=== PATIENT | male | born 1945 | race Caucasian/White ===

== ENCOUNTER → 2023-12-06 12:39 | Outpatient (REF) | payer MEDICARE, SELFPAY | LOC: HWRAD 12:39 | PROVIDERS: ATTENDING PHYSICIAN Internal Medicine | DX: Z00.00 Encounter for general adult medical examination without abnormal findings (principal); R04.2 Hemoptysis | CPT/HCPCS: 71260; Q9967 ==

== ENCOUNTER 2024-02-26 16:53 | Emergency (ER) | payer MEDICARE, SELFPAY ==
[2024-02-26 16:58] VITALS: BP 189/103
--- NOTE | 2024-02-26 23:39 | ED.SKININJ ---
HPI-Injury
General
Chief Complaint: Skin Surface Trauma
Source: patient
Exam Limitations: none
Time Seen by Provider: 02/26/24 17:09
Nursing documentation reviewed up to this point in time: agreed with
Travel History
Have you had any contact with someone who has COVID-19?: No
Do you have any symptoms of coronavirus? Fever > 100 degrees, chills, cough, shortness of breath, sore throat, loss of taste or smell, muscle aches, or headache?: No
History of Present Illness-Injury
Is this injury a work related problem?: No
Is pt an associate of [facility]?: No
Initial Injury comments:
Patient to ED with complaint of splinter to right palmar distal 5th finger. Splinter from telephone pole. He was unable to retrieve at home. Brought self to ED for eval. Injury occurred today.
Past History
Past History
ED Past Medical History: None
ED Past Surgical History: Tonsilectomy and Other
Social History
Tobacco: Non-smoker
Alcohol: None
Drug: None
Personal:
Living: with family
Review of Systems
Review of Systems
Allergies reviewed?: Yes
All Other Systems: ROS reviewed and negative except as documented in HPI and ROS
Constitutional: Reports no symptoms
Musculoskeletal: Reports no symptoms
Skin: Reports other (splinter right distal palmar 5th finger)
Neurological: Reports no symptoms
Psychiatric: Reports no symptoms
Skin Exam
Foreign Body
Right Distal Palmar Fifth Finger:
Foreign body is: deep
Foreign body can be visualized?: Yes
Phy Exam
General Physical Exam
General Presentation: well appearing and no apparent distress
General age: appears stated age
General Skin: warm and dry
General Habitus: normal
General Mental: alert
General Hydration: appears well hydrated
Musculoskeletal Exam
Musculoskeletal Exam: neuro vasc intact
Skin Exam
Skin Exam: normal color, warm/dry and no rash
Psychiatric Exam
Psychiatric Exam: normal mood/affect
Course
Vital Signs
Initial and Last Documented VS:
Initial Vital Signs
Temp Pulse Resp BP Pulse Ox
98.1 F 78 20 189/103 98
02/26/24 16:58 02/26/24 16:58 02/26/24 16:58 02/26/24 16:58 02/26/24 16:58
Last Documented Vital Signs
Temp Pulse Resp BP Pulse Ox
98.1 F 78 20 189/103 98
02/26/24 16:58 02/26/24 16:58 02/26/24 16:58 02/26/24 16:58 02/26/24 16:58
Procedures
Foreign Body Removal-Skin
Anesthesia: 1% lidocaine
Foreign body removed using: incision (Small superficial slice with #11 blade and FB retrieved. Dressed with antibiotic ointment and dressing.)
Foreign body removed: completely
*Critical Care Note
Total Time (30-74mins, 75-104mins- exclusive of procedures): Not Applicable
ED Attending Note
-
Portions of this chart may have been created with voice recognition software.� Occasional wrong word or��sound alike� substitutions may have occurred due to the inherent limitations of voice recognition software.
Discharge Plan
Departure
Patient Disposition: Home (Routine Discharge)
Date of Disposition: 02/26/24
Time of Disposition: 17:32
Patient with high blood pressure during this ER visit?: No
Condition: Good
Covid-19: Not Applicable
Discharge Problem:
Splinter
Instructions: Wound Care (DC), Foreign Body in Skin (DC)
Prescriptions:
No Action
cephalexin 500 mg capsule
500 mg PO BID 10 Days Qty: 19 0RF
Activity Restrictions/Additional Instructions:
Follow up with your family doctor.
Interventions
Interventions:
*Risk Screen - Suicide Last Done: 02/26/24 18:10
*General Assessment Last Done: 02/26/24 18:08
*Neglect/Abuse Screening Last Done: 02/26/24 18:08
ED- Fall Risk Assessment Last Done: 02/26/24 18:10
*ED COVID-19 Vaccine History Last Done: 02/26/24 18:08
*Nursing Disposition Last Done: 02/26/24 18:12
ED-Skin Assessment Last Done: 02/26/24 18:10
Discharge Date and Time
Discharge Date/Time: 02/26/24 18:13
Print Language: SLOVAK
== END 2024-02-26 18:13 | disposition home or self-care (01) ==
LOC: EMR 16:53
PROVIDERS: EMERGENCY PHYSICIAN Emergency Medicine; FAMILY PHYSICIAN Internal Medicine
DX: S60.456A Superficial foreign body of right little finger, initial encounter (principal); W45.8XXA Other foreign body or object entering through skin, initial encounter
CPT/HCPCS: 99284; 10120

== ENCOUNTER → 2024-05-07 11:08 | Outpatient (REF) | payer MEDICARE, SELFPAY ==
[2024-05-07 12:34] LABS: PSA, Total - Diagnostic 7.79 ng/ml (0.0-4.0)
== END ==
LOC: REG 11:08
PROVIDERS: ATTENDING PHYSICIAN Surgery
DX: R97.20 Elevated prostate specific antigen [PSA] (principal)
CPT/HCPCS: 36415; 84153

== ENCOUNTER → 2024-07-10 16:15 | Outpatient (REF) | payer MEDICARE, SELFPAY | LOC: RCS 16:15 | PROVIDERS: ATTENDING PHYSICIAN Family Medicine | DX: R01.1 Cardiac murmur, unspecified (principal) | CPT/HCPCS: 93306 ==

== ENCOUNTER → 2024-07-27 08:55 | Outpatient (REF) | payer MEDICARE, SELFPAY | LOC: PAVMRI 08:55 | PROVIDERS: ATTENDING PHYSICIAN Family Medicine | DX: I72.3 Aneurysm of iliac artery (principal) | CPT/HCPCS: 72198; A9585 ==

== ENCOUNTER → 2024-08-03 11:14 | Outpatient (REF) | payer MEDICARE, SELFPAY | LOC: CLAB 11:14 | PROVIDERS: ATTENDING PHYSICIAN Surgery | DX: R97.20 Elevated prostate specific antigen [PSA] (principal) | CPT/HCPCS: 88305 ==

== ENCOUNTER → 2024-10-30 10:53 | Outpatient (REF) | payer MEDICARE, SELFPAY | LOC: PAVMRI 10:53 | PROVIDERS: ATTENDING PHYSICIAN Radiology Radiation Oncology; FAMILY PHYSICIAN Family Medicine | DX: C61 Malignant neoplasm of prostate (principal) | CPT/HCPCS: 72195 ==

== ENCOUNTER 2025-02-08 16:05 | Emergency (ER) | payer MEDICARE, SELFPAY ==
[2025-02-08 16:14] VITALS: BP 160/90
--- NOTE | 2025-02-08 19:48 | ED.GENMED ---
History of Present Illness
General
Chief Complaint: Skin Problem
Source: patient
Exam Limitations: none
Time Seen by Provider: 02/08/25 19:36
History of Present Illness
History of Present Illness:
79yo right hand dominant male with a history of hyperlipidemia and prostate cancer (finished radiation last month, not receiving any current treatment) presenting with his for evaluation of left wrist pain. Patient was moving heavy boxes at
[employer] yesterday and felt a twinge in his left wrist. He did not have any pain initially but developed pain several hours later. He also has some redness to the lateral aspect of the wrist. Symptoms seem to be worsening today. Pain is worse with
movement. He is worried that he may have a fracture and his thinks he may have gotten a bug bite while he was outside. He denies any fevers, chills, or body aches.
Past History
Past History
ED Past Medical History: None
ED Past Surgical History: Tonsilectomy and Other
Social History
Tobacco: Non-smoker
Alcohol: None
Drug: None
Personal:
Living: with family
Phy Exam
General Physical Exam
General Presentation: well appearing and no apparent distress
General age: appears stated age
General Skin: warm and dry
General Habitus: normal
General Mental: alert
ENT Exam
ENT Exam: normocephalic
Neurological Exam
Neurological Exam: alert
Musculoskeletal Exam
Musculoskeletal Exam: other (L wrist: +Erythema and warmth present to the ulnar aspect of the wrist with tenderness in the area. No wounds. ROM is normal although he does have pain with flexion/extension. No joint effusion noted. 2+ radial pulse and
sensation intact. )
Skin Exam
Skin Exam: warm/dry
Psychiatric Exam
Psychiatric Exam: normal mood/affect
Course
Orders/Labs/Results
Orders:
Orders
02/08/25 16:18
CR Forearm - Left 2 View Urgent
Comment:
Reason For Exam: Pain, swelling
CR Hand - Left 2 Views Urgent
Comment:
Reason For Exam: Pain, swelling
CR Wrist - Left Min 2 Views Urgent
Comment:
Reason For Exam: Swelling, pain
02/08/25 20:45
[place] Wrist Left-Treatment ONCE
Cephalexin Monohydrate [Keflex] 500 mg PO NOW STA
Prednisone [Deltasone] 40 mg PO NOW STA
Vital Signs
Initial and Last Documented VS:
Initial Vital Signs
Temp Pulse Resp BP Pulse Ox
97.6 F 74 18 160/90 95
02/08/25 16:14 02/08/25 16:14 02/08/25 16:14 02/08/25 16:14 02/08/25 16:14
Last Documented Vital Signs
Temp Pulse Resp BP Pulse Ox
97.6 F 74 18 160/90 95
02/08/25 16:14 02/08/25 16:14 02/08/25 16:14 02/08/25 16:14 02/08/25 16:14
MDM/Problems Addressed
Differential Diagnosis Includes:
79yoM here with L wrist pain and redness x 1 day. Started several hours after lifting heavy boxes. No f/c or systemic symptoms. There is erythema/warmth noted to the ulnar aspect of the wrist. No joint effusion and ROM is normal, no clinical concern
for septic arthritis. Differential diagnosis includes: cellulitis, inflammatory arthritis, tendonitis, sprain, doubt fracture
X-rays of hand/wrist/forearm are negative for acute osseous abnormalities. No indication for further workup. Will cover with both prednisone and Keflex. [place] wrist brace provided. Advised close f/u with PCP and orthopedics. Strict ED return
precautions discussed including spreading redness/fevers. Patient in agreement with plan and was discharged in stable condition.
*Critical Care Note
Total Time (30-74mins, 75-104mins- exclusive of procedures): Not Applicable
ED Attending Note
-
Portions of this chart may have been created with voice recognition software.� Occasional wrong word or��sound alike� substitutions may have occurred due to the inherent limitations of voice recognition software.
Discharge Plan
Departure
Patient Disposition: Home (Routine Discharge)
Date of Disposition: 02/08/25
Time of Disposition: 20:45
Patient with high blood pressure during this ER visit?: Yes
Discharge Problem:
Pain and swelling of left wrist
Instructions: Muscle, joint, and bone pain - Discharge instructions
Prescriptions:
New
prednisone 20 mg tablet
40 mg PO DAILY 4 Days Qty: 8 0RF
cephalexin 500 mg capsule
500 mg PO Q6H 7 Days Qty: 27 0RF
No Action
cephalexin 500 mg capsule
500 mg PO BID 10 Days Qty: 19 0RF
Referrals:
Cari Villaseñor MD [Family Provider] -
Julián Mckeon MD [Active] -
Activity Restrictions/Additional Instructions:
Wear brace for comfort. Take antibiotics and prednisone as prescribed. Take Tylenol as needed for pain.
Please follow-up with your family doctor and orthopedics next week. Return to the ER with any worsening symptoms, spreading redness, fevers, or chills.
Interventions
Interventions:
*Risk Screen - Suicide Last Done: 02/08/25 16:14
*General Assessment Last Done: 02/08/25 16:14
*Neglect/Abuse Screening Last Done: 02/08/25 16:14
*ED- Fall Risk Assessment Last Done: 02/08/25 21:04
*ED COVID-19 Vaccine History Last Done: 02/08/25 16:14
*Nursing Disposition Last Done: 02/08/25 21:04
ED-Skin Assessment Last Done: 02/08/25 19:23
Discharge Date and Time
Discharge Date/Time: 02/08/25 21:04
Print Language: LIBYAN
[2025-02-08] MEDS: DELTASONE 40 MG PO (20:59)
[2025-02-08] MEDS: KEFLEX 500 MG PO (20:59)
== END 2025-02-08 21:04 | disposition home or self-care (01) ==
LOC: EMR 16:05
PROVIDERS: EMERGENCY PHYSICIAN Emergency Medicine; FAMILY PHYSICIAN Family Medicine
DX: M25.532 Pain in left wrist (principal); M25.432 Effusion, left wrist; E78.00 Pure hypercholesterolemia, unspecified; Z85.46 Personal history of malignant neoplasm of prostate; Z92.3 Personal history of irradiation
CPT/HCPCS: 99283; 73090; 73100; 73120

== ENCOUNTER → 2025-02-19 15:40 | Outpatient (REF) | payer MEDICARE, SELFPAY ==
[2025-02-19 16:41] LABS: ALT (SGPT) 31 U/L (0-50); AST (SGOT) 30 U/L (17-59); Albumin 4.4 g/dl (3.5-5.0); Alkaline Phosphatase 77 U/L (38-126); Blood Urea Nitrogen 19 mg/dl (9-20); Calcium 9.5 mg/dl (8.4-10.2); Carbon Dioxide 22 mmol/L (22-30); Chloride 108 mmol/L (98-107); Glucose 96 mg/dl (70-99); HDL Cholesterol 55 mg/dl; LDL Cholesterol, Calculated 78 mg/dl; Potassium 4.3 mmol/L (3.5-5.1); Sodium 141 mmol/L (135-145); Total Bilirubin 0.7 mg/dl (0.2-1.3); Total Cholesterol 166 mg/dl (50-199); Total Protein 7.1 g/dl (6.3-8.2); Triglyceride 166 mg/dl (10-149); Very Low Density Lipoprotein 33 mg/dl (0-30); eGFR > 60.00
== END ==
LOC: REG 15:40
PROVIDERS: ATTENDING PHYSICIAN Family Medicine Geriatric Medicine; FAMILY PHYSICIAN Family Medicine
DX: E78.00 Pure hypercholesterolemia, unspecified (principal); C61 Malignant neoplasm of prostate
CPT/HCPCS: 36415; 80053; 80061; 84153

== ENCOUNTER → 2025-04-05 11:54 | Outpatient (REF) | payer MEDICARE, SELFPAY ==
[2025-04-05 12:54] LABS: % Basophils 1.1 % (0-2); % Eosinophils 1.7 % (0-6); % Immature Granulocytes 0.3 % (0-0.5); % Lymphocytes 44.3 % (20.5-51.1); % Monocytes 8.6 % (1.7-9.3); Absolute Basophils 0.1 10^3/uL (0-0.2); Absolute Eosinophils 0.1 10^3/uL (0-0.7); Absolute Lymphocytes 2.9 10^3/uL (1.2-3.4); Absolute Monocytes 0.6 10^3/uL (0.1-0.6); Absolute Neutrophils 2.9 10^3/uL (1.4-6.5); Hematocrit 42.5 % (39.0-52.0); Hemoglobin 14.7 g/dL (13.0-18.0); Mean Corp Hgb Conc. 34.6 g/dL (33.0-37.0); Mean Corpuscular Hgb 31.3 pg (27.0-31.0); Mean Corpuscular Volume 90.4 fL (80.0-94.0); Mean Platelet Volume 9.7 fL (7.4-10.4); Nucleated Red Blood Cells % 0 % (-); Platelet Count 209 10^3/uL (130-400); Red Cell Dist. Width 11.9 % (11.5-14.5); White Blood Cell Count 6.6 10^3/uL (4.8-10.8)
[2025-04-05 14:17] LABS: Glycohemoglobin (HgbA1c) 5.5 % (4.0-5.6)
[2025-04-05 15:20] LABS: TSH Reflex To Free T4 2.21 uIU/ml (0.47-4.68)
== END ==
LOC: REG 11:54
PROVIDERS: ATTENDING PHYSICIAN Family Medicine
DX: R05.3 Chronic cough (principal); I51.89 Other ill-defined heart diseases; H40.053 Ocular hypertension, bilateral; R73.02 Impaired glucose tolerance (oral); R94.6 Abnormal results of thyroid function studies
CPT/HCPCS: 36415; 83036; 84443; 85025

== ENCOUNTER → 2025-04-18 14:33 | Outpatient (REF) | payer MEDICARE, SELFPAY | LOC: RAD 14:33 | PROVIDERS: ATTENDING PHYSICIAN Family Medicine | DX: R05.3 Chronic cough (principal) | CPT/HCPCS: 71046 ==

== ENCOUNTER → 2025-05-14 06:57 | Outpatient (REF) | payer MEDICARE, SELFPAY | LOC: RSP 06:57 | PROVIDERS: ATTENDING PHYSICIAN Family Medicine | DX: R05.3 Chronic cough (principal) | CPT/HCPCS: 88738; 94010; 94727; 94729 ==

== ENCOUNTER → 2025-05-24 12:12 | Outpatient (REF) | payer MEDICARE, SELFPAY ==
[2025-05-24 14:11] LABS: PSA, Total - Diagnostic < 0.06 ng/ml (0.0-4.0)
== END ==
LOC: REG 12:12
PROVIDERS: ATTENDING PHYSICIAN Family Medicine Geriatric Medicine; FAMILY PHYSICIAN Family Medicine; OTHER PHYSICIAN Radiology Radiation Oncology
DX: C61 Malignant neoplasm of prostate (principal); Z12.5 Encounter for screening for malignant neoplasm of prostate
CPT/HCPCS: 36415; 84153

== ENCOUNTER → 2025-06-03 11:47 | Outpatient (REF) | payer MEDICARE, SELFPAY ==
[2025-06-03 12:29] LABS: Urine Character Clear (Clear)
[2025-06-03 12:51] LABS: Urine Red Blood Cell 0-2 /HPF (0-2); Urine Squamous Cell 0-2 /LPF (Few); Urine White Cell 0-2 /HPF (0-5)
== END ==
LOC: REG 11:47
PROVIDERS: ATTENDING PHYSICIAN Family Medicine Geriatric Medicine; FAMILY PHYSICIAN Family Medicine
DX: R39.15 Urgency of urination (principal); R35.0 Frequency of micturition
CPT/HCPCS: 81003; 81015; 87086

== ENCOUNTER → 2025-07-09 12:07 | Outpatient (REF) | payer MEDICARE, SELFPAY ==
[2025-07-09 13:52] LABS: ALT (SGPT) 24 U/L (0-50); AST (SGOT) 29 U/L (17-59); Albumin 4.5 g/dl (3.5-5.0); Alkaline Phosphatase 56 U/L (38-126); Blood Urea Nitrogen 18 mg/dl (9-20); Calcium 9.6 mg/dl (8.4-10.2); Carbon Dioxide 26 mmol/L (22-30); Chloride 107 mmol/L (98-107); Glucose 95 mg/dl (70-99); HDL Cholesterol 53 mg/dl; LDL Cholesterol, Calculated 66 mg/dl; Potassium 4.7 mmol/L (3.5-5.1); Sodium 138 mmol/L (135-145); Total Protein 7.4 g/dl (6.3-8.2); Very Low Density Lipoprotein 29 mg/dl (0-30); eGFR > 60.00
== END ==
LOC: REG 12:07
PROVIDERS: ATTENDING PHYSICIAN Family Medicine
DX: E78.00 Pure hypercholesterolemia, unspecified (principal)
CPT/HCPCS: 36415; 80053; 80061

== ENCOUNTER → 2025-08-29 10:29 | Outpatient (REF) | payer MEDICARE, SELFPAY | LOC: RAD 10:29 | PROVIDERS: ATTENDING PHYSICIAN Surgery Vascular Surgery; FAMILY PHYSICIAN Family Medicine | DX: I72.3 Aneurysm of iliac artery (principal) | CPT/HCPCS: 74174; Q9967 ==